=== PATIENT | male | born 1985 | race Caucasian/White ===

== ENCOUNTER 2018-08-06 13:19 | Day surgery (SDC) | payer OTHER ==
[~2018-08-06 13:19] MED LIST: ABAC300; ACET120S PO; ACET325 PO; ALBU90OI INH; AMOCLA875 PO; AZIT250 PO; AZIT500 PO; Amitriptyline H10 MG PO; Amoxicillin500 MG PO; BUPR100 PO; BUTASPCAFT PO; Bactrim Ds Tab1 EACH PO; CEPH500 PO; CIPRO500 MG PO; CLIN150 PO; CYCL10 PO; Cleocin HCl300 MG PO; Crutch1 EACH MISC; Cymbalta60 MG; DOCU100 PO; DOXY100 PO; DULO30 PO; DULO60 PO; Desyrel150 MG PO; ETOD200 MT; Excedrin Extra1 EACH PO; FERR325 PO; FLUC100 PO; FLUO10 PO; GABA100 PO; GABA400 PO; GABA600; GABA600 PO; HYDMOR2 PO; HYDMOR4 PO; HYDR1TAB94 PO; IBUP600 PO; Keflex500 MG PO; LEVFLO500; LEVO750 PO; LEVOFLOXACIN500 MG PO; LEVOFLOXACIN750 MG PO; LISI20 PO; LISI5 PO; LORA.5; METH10; METO10 PO; MIRT15 PO; MIRT30 PO; Norco 10-325 T1 EACH PO; Norco 5-325 Ta1 EACH PO; OMEP20ER PO; ONDA4ODT MM; OXYC10TA19; OXYC1TAB11; OXYC5; PREG75 PO; PROACE100 PO; PROM25 PO; PROM25S PR; Percocet 10-321 EACH PO; Percocet 5-3251 EACH PO; Peridex480 ML SS; Prilosec Otc20 MG PO; Prozac20 MG PO; QUET100 PO; RIZATRIPTAN5 M1 PO; RXPROACE PO; SULTRIDS PO; Sulfamethoxazo1 EAC4 PO; TRAM50 PO; TRAZ150T57 PO; Tylenol325 MG PO; Ultram50 MG PO; VARE1; VARE1 PO; VICODIN 5-3001 EACH PO; Vivitrol380 MG IM; ZOLP10 PO; ZONI100 PO; Zofran Odt8 MG SL; Zolpidem Tartra10 MG; Zonegran25 MG PO
== END 2018-08-06 17:53 | disposition home or self-care (01) ==
LOC: RAD 13:19 → EDSTATUS 14:00 → RAD 15:34 → SURS 15:34 → RAD 17:53 → SURS 17:53
DX: M54.5 Low back pain (principal); G89.29 Other chronic pain; M79.5 Residual foreign body in soft tissue; W34.00XS Accidental discharge from unspecified firearms or gun, sequela
CPT/HCPCS: 62304; 72132; Q9966

== ENCOUNTER 2024-04-02 13:16 | Day surgery (SDC) | payer OTHER ==
[~2024-04-02] VITALS: Ht 182.9 cm; Wt 88.6 kg
[~2024-04-02 13:16] MED LIST changes: +ALBU90OI; +Balanced Salt Epinephrine Irrigation Solution 500 mL IR SCH; +Bupropion HCl75 MG PO; +Lidocaine HCl/Pf 1% 5 ML VIAL XX SCH; +Moxifloxacin HCL 0.5 MG/0.1 ML 0.4MLSYR RIGHTEYE SCH; +NS 500 ML IV ONE; +NS 500 ML ONE; +PHENYLEPHRINE\\TROPICAMIDE\\TETRACAINE OPHTHALMIC DILATING SOLN RIGHTEYE PRN; +Phenylephrine Frt 10% Opth (ORSC) ONE; +Povidone-Iodine 450 DROP/30 ML Solution RIGHTEYE SCH; +Triamcinolone Inj Susp 40 MG / ML 1ML Vial INJ SCH; +Triamcinolone Inj Susp 40 MG / ML 1ML Vial ONE
[2024-04-02] MEDS ORDERED: NS 500 ML IV ONE (13:41)
--- NOTE | 2024-04-02 13:42 | NUR ---
04/02/24 1342 Erik Cruz CALL LIGHT WITHIN REACH. TETRACAINE IN RIGHT EYE AT 1337 AND PLECHAUNCEY INAT 1338
[2024-04-02] MEDS ORDERED: FentaNYL Citrate 50 MCG/ML 2 ML Injection ONE (14:12)
[2024-04-02] MEDS ORDERED: Midazolam HCl 1MG / ML 2ML Vial ONE ×3 (14:12→14:26)
[2024-04-02] MEDS ORDERED: Tetracaine HCl 0.5% Opth Soln 15 ml RIGHTEYE ONE (14:12)
[2024-04-02 14:38] VITALS: BP 117/77
== END 2024-04-02 14:51 | disposition home or self-care (01) ==
LOC: ORSCSDS 13:16
PROVIDERS: Ophthalmology
PROC: 08RJ3JZ Replacement of Right Lens with Synthetic Substitute, Percutaneous Approach (ICD-10-PCS; principal; 2024-04-02 14:30)
DX: H25.11 Age-related nuclear cataract, right eye (principal); H52.201 Unspecified astigmatism, right eye; I10 Essential (primary) hypertension; J45.909 Unspecified asthma, uncomplicated; K21.9 Gastro-esophageal reflux disease without esophagitis; F32.A Depression, unspecified; Z79.899 Other long term (current) drug therapy; F17.210 Nicotine dependence, cigarettes, uncomplicated
CPT/HCPCS: J2250; J3010; J3301; J7040; V2632